=== PATIENT | male | born 1950 | race Caucasian/White ===

== ENCOUNTER 2018-12-27 13:13 | Inpatient (IN) | payer OTHER ==
[~2018-12-27] VITALS: Ht 182.9 cm; Wt 61.7 kg
[2018-12-27 13:23] VITALS: Ht 182.9 cm; Wt 61.7 kg
[2018-12-27 14:10] LABS: PLATELET COUNT 207 x10^3mcL (130-400); RED CELL DISTRIBUTION WIDTH 12.9 % (11.5-14.5)
[2018-12-27 14:15] LABS: BASOPHIL % 0 % (0-2)
[2018-12-27 14:21] LABS: CALCIUM 9.1 mg/dL (8.5-10.1); CARBON DIOXIDE 24.6 mmol/L (21-32); CHLORIDE SERUM 100 mmol/L (98-107); CREATININE SERUM 0.9 mg/dL (0.7-1.3); GFR1 > 60 mL/min; GLUCOSE SERUM 148 mg/dL (74-106); POTASSIUM SERUM 3.7 mmol/L (3.5-5.1); SODIUM SERUM 138 mmol/L (136-145)
[2018-12-27 14:32] LABS: ALBUMIN 3.9 g/dL (3.4-5.0); ALKALINE PHOSPHATASE 92 U/L (46-116); ALT/SGPT 28 U/L (16-63); AMYLASE 57 U/L (25-115); AST/SGOT 22 U/L (15-37); BILIRUBIN TOTAL 1.1 mg/dL (0.20-1.00); CHOLESTEROL 171 mg/dL (<200); HDL CHOLESTEROL 51 mg/dL (40-60); LIPASE 245 IU/L (73-393); T4(THYROXINE) 10.7 ug/dL (4.7-13.3); TOTAL PROTEIN, SERUM 7.3 g/dL (6.4-8.2)
[2018-12-27 15:26] LABS: UA SPECIFIC GRAVITY 1.025 (1.005-1.035); microscopic required? YES; urine erythrocyte 1+ (NEGATIVE)
[2018-12-27 15:36] LABS: AMPHETAMINE QUAL UR NONE DETECTED (See below)
[2018-12-27 16:23] VITALS: BP 129/71
[2018-12-27 16:33] LABS: MAGNESIUM 1.7 mg/dL (1.8-2.4); PHOSPHOROUS 1.2 mg/dL (2.5-4.9)
[2018-12-27 20:33] VITALS: BP 99/61
[2018-12-27 21:39] VITALS: BP 99/61
[2018-12-28 05:16] VITALS: BP 100/60
[2018-12-28 06:29] LABS: BASOPHIL % 0.3 % (0-2); PLATELET COUNT 177 x10^3mcL (130-400)
[2018-12-28 06:59] LABS: CALCIUM 7.7 mg/dL (8.5-10.1); CARBON DIOXIDE 23.8 mmol/L (21-32); CHLORIDE SERUM 106 mmol/L (98-107); CREATININE SERUM 0.6 mg/dL (0.7-1.3); GFR1 > 60 mL/min; GLUCOSE SERUM 101 mg/dL (74-106); POTASSIUM SERUM 3.3 mmol/L (3.5-5.1); SODIUM SERUM 142 mmol/L (136-145)
[2018-12-28 09:21] VITALS: BP 128/73
[2018-12-28] MEDS ORDERED: WELLBUTRIN XL300 M1 PO (09:30)
[2018-12-28] MEDS ORDERED: LEXAPRO20 MG PO (09:32)
[2018-12-28] MEDS ORDERED: TRAZODONE50 M1 PO (09:36)
[2018-12-28] MEDS ORDERED: VIS25 PO (09:39)
[2018-12-28] MEDS ORDERED: ZOLOFT50 MG PO (09:47)
[2018-12-28] MEDS ORDERED: EPZICOM1 TAB (09:47)
[2018-12-28 13:06] VITALS: BP 120/72
[2018-12-28 16:17] VITALS: BP 120/72
[2018-12-28 16:21] VITALS: BP 112/76
[2018-12-28 20:34] VITALS: BP 101/54
[2018-12-29 09:53] VITALS: BP 128/83
[2018-12-29 13:27] VITALS: BP 125/87
[2018-12-29 17:53] VITALS: BP 129/70
[2018-12-29 21:07] VITALS: BP 108/60
[2018-12-29 21:23] VITALS: BP 109/51
[2018-12-30 05:35] VITALS: BP 97/57
[2018-12-30 08:52] VITALS: BP 117/63
[2018-12-30 12:55] VITALS: BP 113/86
[2018-12-30 13:13] VITALS: BP 117/63
== END 2018-12-30 14:52 | disposition home or self-care (01) | DRG 374 ==
LOC: ED 13:13 → DU 15:29
PROVIDERS: Emergency Medicine; Internal Medicine Gastroenterology; ADMIT Internal Medicine
PROC: 0DB78ZX Excision of Stomach, Pylorus, Via Natural or Artificial Opening Endoscopic, Diagnostic (ICD-10-PCS; principal; 2018-12-29 13:30)
PROC: 0D5F8ZZ Destruction of Right Large Intestine, Via Natural or Artificial Opening Endoscopic (ICD-10-PCS; 2018-12-29 13:30)
PROC: 0DBG8ZZ Excision of Left Large Intestine, Via Natural or Artificial Opening Endoscopic (ICD-10-PCS; 2018-12-29 13:30)
PROC: 0D5H8ZZ Destruction of Cecum, Via Natural or Artificial Opening Endoscopic (ICD-10-PCS; 2018-12-29 13:30)
DX: D37.8 Neoplasm of uncertain behavior of other specified digestive organs (principal); N17.0 Acute kidney failure with tubular necrosis; Z68.1 Body mass index [BMI] 19.9 or less, adult; F12.288 Cannabis dependence with other cannabis-induced disorder; K26.9 Duodenal ulcer, unspecified as acute or chronic, without hemorrhage or perforation; K29.80 Duodenitis without bleeding; I71.9 Aortic aneurysm of unspecified site, without rupture; K52.9 Noninfective gastroenteritis and colitis, unspecified; K55.20 Angiodysplasia of colon without hemorrhage; K29.70 Gastritis, unspecified, without bleeding; K63.5 Polyp of colon; E83.42 Hypomagnesemia; E83.39 Other disorders of phosphorus metabolism; E87.6 Hypokalemia; R73.03 Prediabetes; R63.4 Abnormal weight loss; J44.9 Chronic obstructive pulmonary disease, unspecified; D64.9 Anemia, unspecified; K64.8 Other hemorrhoids
CPT/HCPCS: 36600; 43235; 45378; 83880; 87046; 87046-59; G0480; J1200; J1610; J1630; J1650; J2060; J2250; J2310; J2405; J2765; J3010; J3490; J7030; J7620; Q0092; Q9966; Q9967

== ENCOUNTER 2019-01-01 02:29 | Inpatient (IN) | payer OTHER ==
[~2019-01-01] VITALS: Ht 182.9 cm; Wt 56.7 kg
[~2019-01-01 02:29] MED LIST: EPZICOM1 TAB; LEXAPRO20 MG PO; TRAZODONE50 M1 PO; VIS25 PO; WELLBUTRIN XL300 M1 PO; ZOLOFT50 MG PO
[2019-01-01 02:37] VITALS: Ht 182.9 cm; Wt 56.7 kg
[2019-01-01 03:16] LABS: BASOPHIL % 0.3 % (0-2); PLATELET COUNT 191 x10^3mcL (130-400); RED CELL DISTRIBUTION WIDTH 12.8 % (11.5-14.5)
[2019-01-01 03:27] LABS: CALCIUM 9.2 mg/dL (8.5-10.1); CARBON DIOXIDE 29.9 mmol/L (21-32); CHLORIDE SERUM 101 mmol/L (98-107); CREATININE SERUM 0.8 mg/dL (0.7-1.3); GFR1 > 60 mL/min; GLUCOSE SERUM 139 mg/dL (74-106); POTASSIUM SERUM 3.8 mmol/L (3.5-5.1); SODIUM SERUM 139 mmol/L (136-145)
[2019-01-01 03:32] LABS: ALBUMIN 3.6 g/dL (3.4-5.0); ALKALINE PHOSPHATASE 84 U/L (46-116); ALT/SGPT 29 U/L (16-63); AMYLASE 52 U/L (25-115); AST/SGOT 19 U/L (15-37); BILIRUBIN TOTAL 0.91 mg/dL (0.20-1.00); LIPASE 236 IU/L (73-393); TOTAL PROTEIN, SERUM 7.4 g/dL (6.4-8.2)
[2019-01-01 06:35] VITALS: BP 96/46
[2019-01-01 07:31] LABS: MAGNESIUM 1.9 mg/dL (1.8-2.4); PHOSPHOROUS 3.4 mg/dL (2.5-4.9)
[2019-01-01 08:54] LABS: BASOPHIL % 0.4 % (0-2); PLATELET COUNT 157 x10^3mcL (130-400); RED CELL DISTRIBUTION WIDTH 13.2 % (11.5-14.5)
[2019-01-01 09:52] VITALS: BP 87/54
[2019-01-01 10:24] LABS: CALCIUM 7.9 mg/dL (8.5-10.1); CARBON DIOXIDE 30.9 mmol/L (21-32); CHLORIDE SERUM 108 mmol/L (98-107); CREATININE SERUM 0.7 mg/dL (0.7-1.3); GFR1 > 60 mL/min; GLUCOSE SERUM 122 mg/dL (74-106); POTASSIUM SERUM 4.6 mmol/L (3.5-5.1); SODIUM SERUM 142 mmol/L (136-145)
[2019-01-01 10:27] VITALS: BP 96/46
[2019-01-01] MEDS ORDERED: METFORMIN HCL500 MG GT (14:35)
[2019-01-01] MEDS ORDERED: COMPAZINE10 M1 PO (14:36)
[2019-01-01] MEDS ORDERED: SEROQUEL25 MG PO (14:37)
[2019-01-01] MEDS ORDERED: NEXIUM20 MG PO (14:38)
[2019-01-01] MEDS ORDERED: IBUPROFEN400 MG PO (14:39)
[2019-01-01 17:29] VITALS: BP 126/81
[2019-01-01 21:28] VITALS: BP 96/58
[2019-01-02 02:53] LABS: microscopic required? YES; urine erythrocyte TRACE (NEGATIVE)
[2019-01-02 03:06] LABS: AMPHETAMINE QUAL UR NONE DETECTED (See below)
[2019-01-02 05:48] VITALS: BP 91/55
[2019-01-02 09:32] VITALS: BP 103/62
[2019-01-02 17:20] VITALS: BP 119/74
[2019-01-02 21:09] VITALS: BP 117/74
[2019-01-03 05:41] VITALS: BP 105/63
[2019-01-03 07:09] LABS: CALCIUM 7.9 mg/dL (8.5-10.1); CARBON DIOXIDE 27.9 mmol/L (21-32); CHLORIDE SERUM 108 mmol/L (98-107); CREATININE SERUM 0.7 mg/dL (0.7-1.3); GFR1 > 60 mL/min; GLUCOSE SERUM 109 mg/dL (74-106); MAGNESIUM 1.8 mg/dL (1.8-2.4); PHOSPHOROUS 2.1 mg/dL (2.5-4.9); POTASSIUM SERUM 3.7 mmol/L (3.5-5.1); SODIUM SERUM 142 mmol/L (136-145)
[2019-01-03 07:19] LABS: BASOPHIL % 0.2 % (0-2); PLATELET COUNT 181 x10^3mcL (130-400); RED CELL DISTRIBUTION WIDTH 12.9 % (11.5-14.5)
[2019-01-03 10:38] VITALS: BP 120/85
[2019-01-03 18:29] VITALS: BP 116/77
[2019-01-03 18:43] VITALS: BP 116/77
[2019-01-03 21:24] VITALS: BP 142/87
== END 2019-01-03 23:28 | disposition short-term general hospital (02) | DRG 372 ==
LOC: ED 02:29 → MU 05:24
PROVIDERS: Emergency Medicine; ADMIT Internal Medicine
DX: K35.20 Acute appendicitis with generalized peritonitis, without abscess (principal); C25.0 Malignant neoplasm of head of pancreas; R64 Cachexia; F12.20 Cannabis dependence, uncomplicated; R00.1 Bradycardia, unspecified; R73.03 Prediabetes; J44.9 Chronic obstructive pulmonary disease, unspecified; I71.9 Aortic aneurysm of unspecified site, without rupture; R74.0 Nonspecific elevation of levels of transaminase and lactic acid dehydrogenase [LDH]; Z87.891 Personal history of nicotine dependence; Z79.84 Long term (current) use of oral hypoglycemic drugs
CPT/HCPCS: J0295; J2060; J2270; J2405; J3490; J7030

== ENCOUNTER 2019-01-13 21:34 | Emergency (ER) | payer OTHER ==
[~2019-01-13] VITALS: Ht 175.3 cm; Wt 59.0 kg
[~2019-01-13 21:34] MED LIST changes: +COMPAZINE10 M1 PO; +IBUPROFEN400 MG PO; +METFORMIN HCL500 MG GT; +NEXIUM20 MG PO; +SEROQUEL25 MG PO
[2019-01-13 21:49] VITALS: Ht 175.3 cm; Wt 59.0 kg
[2019-01-13 23:10] LABS: BASOPHIL % 0.4 % (0-2); PLATELET COUNT 339 x10^3mcL (130-400); RED CELL DISTRIBUTION WIDTH 13.3 % (11.5-14.5)
[2019-01-13 23:37] LABS: CALCIUM 9.5 mg/dL (8.5-10.1); CARBON DIOXIDE 25.8 mmol/L (21-32); CHLORIDE SERUM 100 mmol/L (98-107); CREATININE SERUM 0.7 mg/dL (0.7-1.3); GFR1 > 60 mL/min; GLUCOSE SERUM 144 mg/dL (74-106); POTASSIUM SERUM 3.6 mmol/L (3.5-5.1); SODIUM SERUM 140 mmol/L (136-145)
[2019-01-13 23:49] LABS: ALBUMIN 3.9 g/dL (3.4-5.0); ALKALINE PHOSPHATASE 65 U/L (46-116); ALT/SGPT 31 U/L (16-63); AST/SGOT 19 U/L (15-37); BILIRUBIN TOTAL 0.8 mg/dL (0.20-1.00); FREE T4 1.28 ng/dL (0.76-1.46); LIPASE 742 IU/L (73-393); TOTAL PROTEIN, SERUM 7.4 g/dL (6.4-8.2)
[2019-01-13 23:53] LABS: UA SPECIFIC GRAVITY 1.015 (1.005-1.035); microscopic required? YES; urine erythrocyte TRACE (NEGATIVE)
[2019-01-14 07:27] VITALS: BP 113/69
== END 2019-01-14 07:14 | disposition short-term general hospital (02) ==
LOC: ED 21:34
PROVIDERS: Emergency Medicine
DX: I71.4 Abdominal aortic aneurysm, without rupture (principal); Z90.89 Acquired absence of other organs
CPT/HCPCS: 83880; 84439; J2060; J2270; J2405; J7030; Q0092; Q9967